=== PATIENT | female | born 1970 | race African-American/Black ===

== ENCOUNTER 2019-11-07 10:46 | Emergency (ER) | payer OTHER ==
[2019-11-07] MEDS ORDERED: Ketorolac Tromethamine 30 MG/ML VIAL ONE (11:11)
[2019-11-07] MEDS ORDERED: HYDROcodone/Acetaminophen 5/325 mg Tablet ONE (11:11)
[2019-11-07] MEDS ORDERED: Dexamethasone 20 MG/5 ML VIAL ONE (11:12)
[2019-11-07] MEDS ORDERED: Morphine 4 MG/ML VIAL ONE (12:28)
--- NOTE | 2019-11-07 13:07 | RAD ---
XR Lumbar Spine 2 Or 3 View HISTORY: Back pain COMPARISON: None. FINDINGS: Mild degenerative changes are present. No fracture, subluxation or bony destruction is identified. Th ere are vascular calcifications. IMPRESSION: Mild lumbar spondylosis
== END 2019-11-07 12:48 | disposition home or self-care (01) ==
LOC: NAV ERS 10:46
DX: M54.42 Lumbago with sciatica, left side (principal); I10 Essential (primary) hypertension; F32.9 Major depressive disorder, single episode, unspecified; D64.9 Anemia, unspecified; F17.210 Nicotine dependence, cigarettes, uncomplicated; Z85.3 Personal history of malignant neoplasm of breast; Z79.899 Other long term (current) drug therapy
CPT/HCPCS: 72100; 96372; J1100; J1885; J2270

== ENCOUNTER 2020-07-17 08:13 | Emergency (ER) | payer OTHER | END 2020-07-17 09:00 | disposition home or self-care (01) | LOC: NAV ERS 08:13 | DX: M79.644 Pain in right finger(s) (principal); D64.9 Anemia, unspecified; I10 Essential (primary) hypertension; F17.210 Nicotine dependence, cigarettes, uncomplicated; Z79.899 Other long term (current) drug therapy | CPT/HCPCS: 99283 ==

== ENCOUNTER 2021-05-03 16:58 | Emergency (ER) | payer OTHER | END 2021-05-03 17:21 | disposition home or self-care (01) | LOC: NAV ERS 16:58 | DX: S68.521A Partial traumatic transphalangeal amputation of right thumb, initial encounter (principal); I10 Essential (primary) hypertension; D64.9 Anemia, unspecified; F17.210 Nicotine dependence, cigarettes, uncomplicated; W26.8XXA Contact with other sharp object(s), not elsewhere classified, initial encounter; Z85.3 Personal history of malignant neoplasm of breast; Z79.899 Other long term (current) drug therapy | CPT/HCPCS: 99284 ==

== ENCOUNTER 2022-06-02 11:00 | Emergency (ER) | payer OTHER, MEDICAID ==
[2022-06-02] MEDS ORDERED: Ketorolac Tromethamine 60 MG/2 ML VIAL ONE (11:33)
[2022-06-02] MEDS ORDERED: Dexamethasone 20 MG/5 ML VIAL ONE (11:33)
== END 2022-06-02 12:24 | disposition home or self-care (01) ==
LOC: NAV ERS 11:00
DX: J06.9 Acute upper respiratory infection, unspecified (principal); D64.9 Anemia, unspecified; I10 Essential (primary) hypertension; F17.210 Nicotine dependence, cigarettes, uncomplicated; Z20.822 Contact with and (suspected) exposure to COVID-19; Z85.3 Personal history of malignant neoplasm of breast; Z79.899 Other long term (current) drug therapy
CPT/HCPCS: 71046; 87081; 87430; 87804 ×2; U0003; U0005; J1100; J1885

== ENCOUNTER 2023-07-20 08:58 | Emergency (ER) | payer OTHER, MEDICAID | END 2023-07-20 09:30 | disposition home or self-care (01) | LOC: NAV ERS 08:58 | DX: H10.501 Unspecified blepharoconjunctivitis, right eye (principal); I10 Essential (primary) hypertension; F17.210 Nicotine dependence, cigarettes, uncomplicated; Z79.899 Other long term (current) drug therapy | CPT/HCPCS: 99283 ==

== ENCOUNTER 2023-12-06 15:52 | Emergency (ER) | payer OTHER, MEDICAID ==
[2023-12-06] MEDS ORDERED: Ipratropium/Albuterol 3 ML NEB ONE (16:25)
[2023-12-06] MEDS ORDERED: predniSONE 20 MG TAB ONE (17:37)
[2023-12-06] MEDS ORDERED: Azithromycin 250 MG TAB ONE (17:37)
== END 2023-12-06 17:45 | disposition home or self-care (01) ==
LOC: NAV ERS 15:52
DX: J44.0 Chronic obstructive pulmonary disease with (acute) lower respiratory infection (principal); J12.9 Viral pneumonia, unspecified; J44.1 Chronic obstructive pulmonary disease with (acute) exacerbation; F17.210 Nicotine dependence, cigarettes, uncomplicated
CPT/HCPCS: 71046; 87428; J7512; J7620